=== PATIENT | female | born 1995 | race American Indian/Alaskan Native ===

== ENCOUNTER 2018-08-19 09:15 | Emergency (ER) | payer SELFPAY ==
[2018-08-19 09:41] VITALS: BP 144/99
[2018-08-19] MEDS ORDERED: NORCO 5/325 PO ONE (11:50)
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
--- NOTE | 2018-08-19 12:29 | XRay Report ---
EXAM: XR SPINE LUMBOSACRAL 2-3V HISTORY: Trauma TECHNIQUE: 3 views COMPARISON: None available. FINDINGS: No vertebral fracture, bony erosion, or sclerosis is identified. There is no gross malalignment, spon dylolisthesis, or retrolisthesis seen. There is mild lumbar dextroscoliosis; rule out muscle spasm. The intravertebral disc spaces are prese rved. No evidence for significant degenerative disease is seen. The pedicles are intact throughout. There is no paraspinal soft tissue mass seen. IMPRESSION: 1. Unremarkable lumbar spine x-ray series. 2. Mild lumbar dextroscoliosis; rule out muscle spasm. This document is electronically signed by Eleni Lombardi MD., Aug 19 2018 12:26:45 PM ET
--- NOTE | 2018-08-19 12:31 | Cat Scan Report ---
PROCEDURE: CT HEAD/BRAIN WO CON TECHNIQUE: CT examination of the head without IV contrast HISTORY: Trauma COMPARISONS: None FINDINGS: No acute air-fluid level visualized in the included air-filled sinuses. Bone windows demonstrate no acute fracture. The brain is without mass, mass effect, hemorrhage, or acute infarct. There is no extra-axial intracranial bleed, brain bleed, or midline shift. The ventricles and sulci are age-appropriate. IMPRESSION: No acute CVA, intracranial bleed, or brain mass This document is electronically signed by Daniel Hernandez MD., Aug 19 2018 12:30:15 PM ET
--- NOTE | 2018-08-19 12:38 | Cat Scan Report ---
EXAM: CT CERVICAL SPINE WO CON HISTORY: Trauma TECHNIQUE: Spiral axial CT images with sagittal and coronal reformatted images are obtained through the cervical spine from the skull base to the thoracic inlet without the administration of contrast. COMPARISON: None available. FINDINGS: There is no vertebral fracture seen. The atlantoaxial joint and odontoid process are intact. There is no gross malalignment, spondylolisthesis, retrolisthesis, or perched facet joint seen. There is no gross disc herniation seen. Please note that subtle soft tissue abnormalities can be obs cured in this radiographic setting. Consider follow-up MRI if clinically warranted. IMPRESSION: 1. No gross vertebral fracture, spondylolisthesis, retrolisthesis, or perched facet joint seen. 2. No gross disc herniation seen. This document is electronically signed by Eleni Lombardi MD., Aug 19 2018 12:36:58 PM ET
== END 2018-08-19 13:28 | disposition home or self-care (01) ==
LOC: ED 09:15
DX: R51 Headache (principal); M54.89 Other dorsalgia; M54.2 Cervicalgia; V89.2XXA Person injured in unspecified motor-vehicle accident, traffic, initial encounter; Y93.89 Activity, other specified; Y92.488 Other paved roadways as the place of occurrence of the external cause; Y99.8 Other external cause status
CPT/HCPCS: 70450; 72070; 72100; 72125

== ENCOUNTER 2019-02-11 07:27 | Observation (INO) | payer MEDICAID, OTHER ==
--- NOTE | 2019-02-11 09:08 | Emergency Department Report ---
ED General Adult HPI - General Chief complaint: Weakness Stated complaint: HYPERTHYROIDISM Time Seen by Provider: 02/11/19 09:02 Source: EMS Mode of arrival: Ambulatory Limitations: No Limitations - History of Present Illness Initial comments: 23 year old -[place]ian female presents to the emergency room reporting that she feels her hyperthyroidism is flaring up. Patient admits to throat feeling full. Patient states that she's been off her medications for over a year. Patient reports no past medical history. Patient does report nausea but and only vomited once this morning. Patient admits to lower abdominal pain. Patient denies any dysuria no vaginal discharge or vaginal bleeding. Patient reports her abdominal pain to 7 out of 10. Patient denies any diarrhea. Last menstrual period was 12/28/2018. She is 3 para 3. Surgeries left arm surgery. Last seen a provider over a year. She reports she feels like her borders getting bigger patient reports that she had a fainting spell this morning but did not hit her head or lose consciousness. Patient's vital signs reported during my examination was blood pressure 132/83 heart rate 106 respirations 19 and 100% room air. -: This afternoon Location: abdomen Severity scale (0 -10): 7 Quality: aching Consistency: intermittent Improves with: none Worsens with: none Associated Symptoms: headaches, nausea/vomiting, weakness. denies: chest pain, cough, fever/chills, loss of appetite, shortness of breath, syncope Treatments Prior to Arrival: none - Related Data Previous Rx's Medication Instructions Recorded Last Taken Type Ondansetron [Zofran Odt] 4 mg PO Q8HR #20 tab.rapdis 02/12/19 Unknown Rx methIMAzole [Tapazole] 5 mg PO Q8H #90 tab 02/12/19 Unknown Rx Allergies Allergy/AdvReac Type Severity Reaction Status Date / Time No Known Allergies Allergy Verified 02/11/19 12:17 ED Review of Systems ROS: Stated complaint: HYPERTHYROIDISM Other details as noted in HPI Comment: All other systems reviewed and negative ED Past Medical Hx - Past Medical History Previous Medical History?: Yes Additional medical history: Hyperthyriodism - Surgical History Past Surgical History?: No - Social History Smoking Status: Unknown if ever smoked Substance Use Type: None - Medications Home Medications: Home Medications Medication Instructions Recorded Confirmed Last Taken Type Ondansetron [Zofran Odt] 4 mg PO Q8HR #20 tab.rapdis 02/12/19 Unknown Rx methIMAzole [Tapazole] 5 mg PO Q8H #90 tab 02/12/19 Unknown Rx ED Physical Exam - General Limitations: No Limitations General appearance: alert, in no apparent distress - Head Head exam: Present: atraumatic, normocephalic - Eye Eye exam: Present: normal appearance - ENT ENT exam: Present: mucous membranes moist - Neck Neck exam: Present: full ROM, other (goiter appreciated). Absent: tenderness, lymphadenopathy - Respiratory Respiratory exam: Present: normal lung sounds bilaterally. Absent: respiratory distress - Cardiovascular Cardiovascular Exam: Present: regular rate, normal rhythm. Absent: systolic murmur, diastolic murmur, rubs, gallop - GI/Abdominal GI/Abdominal exam: Present: soft, tenderness (per pubic), normal bowel sounds. Absent: distended - Extremities Exam Extremities exam: Present: normal inspection - Back Exam Back exam: Present: normal inspection - Neurological Exam Neurological exam: Present: alert, oriented X3 - Psychiatric Psychiatric exam: Present: normal affect, normal mood - Skin Skin exam: Present: warm, dry, intact, normal color. Absent: rash ED Course Vital Signs 02/11/19 02/11/19 02/11/19 07:40 07:45 07:56 Temperature 98.2 F Pulse Rate Respiratory Rate Blood Pressure 149/89 O2 Sat by Pulse 99 99 Oximetry 02/11/19 02/11/19 02/11/19 08:00 08:30 08:44 Temperature Pulse Rate 97 H Respiratory 16 18 Rate Blood Pressure 132/83 130/86 O2 Sat by Pulse 99 100 100 Oximetry 02/11/19 02/11/19 02/11/19 09:39 10:00 10:30 Temperature Pulse Rate 124 H 109 H 103 H Respiratory 26 H 28 H 14 Rate Blood Pressure 128/89 129/90 124/81 O2 Sat by Pulse 98 99 100 Oximetry 02/11/19 02/11/19 02/11/19 11:57 12:00 13:01 Temperature Pulse Rate 96 H 118 H 113 H Respiratory 13 19 Rate Blood Pressure 124/81 119/86 131/78 O2 Sat by Pulse 98 100 Oximetry 02/11/19 02/11/19 02/11/19 13:21 13:30 13:41 Temperature Pulse Rate 107 H 109 H 113 H Respiratory 22 21 24 Rate Blood Pressure 131/78 131/79 131/79 O2 Sat by Pulse 100 99 100 Oximetry 02/11/19 02/11/19 02/11/19 13:51 14:00 14:11 Temperature Pulse Rate 111 H 113 H 131 H Respiratory 13 25 H 20 Rate Blood Pressure 130/62 137/75 137/75 O2 Sat by Pulse 100 100 99 Oximetry 02/11/19 02/11/19 02/11/19 14:21 14:31 14:41 Temperature Pulse Rate 114 H 115 H 109 H Respiratory 37 H 51 H 24 Rate Blood Pressure 129/75 134/81 134/81 O2 Sat by Pulse 99 99 100 Oximetry 02/11/19 14:51 Temperature Pulse Rate 113 H Respiratory 24 Rate Blood Pressure 126/72 O2 Sat by Pulse 100 Oximetry ED Medical Decision Making - Lab Data Result diagrams: 02/11/19 09:25 02/12/19 09:27 Laboratory Tests 02/11/19 02/11/19 02/11/19 09:25 09:25 09:25 WBC 4.7 RBC 4.39 Hgb 12.6 Hct 36.0 MCV 82 MCH 29 MCHC 35 H RDW 11.4 L Plt Count 269 Lymph % (Auto) 43.6 H [place] % (Auto) 12.4 H Eos % (Auto) 0.8 Baso % (Auto) 0.4 Lymph # 2.1 [place] # 0.6 Eos # 0.0 Baso # 0.0 Seg Neutrophils % 42.8 Seg Neutrophils # 2.0 Sodium 131 L Potassium 3.3 L Chloride 97.5 L Carbon Dioxide 21 L Anion Gap 16 BUN 8 Creatinine 0.3 L Estimated GFR > 60 BUN/Creatinine Ratio 27 Glucose 93 Calcium 9.1 Total Bilirubin 0.60 AST 14 ALT 15 Alkaline Phosphatase 106 Total Protein 8.5 H Albumin 4.3 Albumin/Globulin Ratio 1.0 TSH Free T4 4.85 H HCG, Qual HCG, Quant 02/11/19 02/11/19 02/11/19 09:25 09:25 09:25 WBC RBC Hgb Hct MCV MCH MCHC RDW Plt Count Lymph % (Auto) [place] % (Auto) Eos % (Auto) Baso % (Auto) Lymph # [place] # Eos # Baso # Seg Neutrophils % Seg Neutrophils # Sodium Potassium Chloride Carbon Dioxide Anion Gap BUN Creatinine Estimated GFR BUN/Creatinine Ratio Glucose Calcium Total Bilirubin AST ALT Alkaline Phosphatase Total Protein Albumin Albumin/Globulin Ratio TSH < 0.005 L Free T4 HCG, Qual Positive HCG, Quant 22522 H Critical care attestation.: If time is entered above; I have spent that time in minutes in the direct care of this critically ill patient, excluding procedure time. ED Disposition Clinical Impression: Hyponatremia, with 7 completed weeks gestation Thyrotoxicosis Qualifiers: Thyrotoxicosis type: unspecified thyrotoxicosis type Thyrotoxic crisis or storm presence: without thyrotoxic crisis or storm Qualified Code(s): E05.90 - Thyrotoxicosis, unspecified without thyrotoxic crisis or storm Vomiting Qualifiers: Vomiting type: unspecified Vomiting Intractability: non-intractable Nausea presence: with nausea Qualified Code(s): R11.2 - Nausea with vomiting, u nspecified Disposition: OP ADMIT IP TO THIS HOSP Is pt being admited?: Yes Does the pt Need Aspirin: Yes Condition: Stable
[2019-02-11 09:39] LABS: Basophils % (Auto) 0.4 % (0.0-1.8); Eosinophils % (Auto) 0.8 % (0.0-4.3); Hemoglobin 12.6 gm/dl (10.1-14.3); Lymphocytes # (Auto) 2.1 K/mm3 (1.2-5.4); Lymphocytes % (Auto) 43.6 % (13.4-35.0); Mean Corpuscular HGB Conc 35 % (30-34); Mean Corpuscular Volume 82 fl (79-97); Monocytes # (Auto) 0.6 K/mm3 (0.0-0.8); Monocytes % (Auto) 12.4 % (0.0-7.3); Platelet Count 269 K/mm3 (140-440); Red Blood Count 4.39 M/mm3 (3.65-5.03); Red Cell Distribution Width 11.4 % (13.2-15.2)
[2019-02-11 10:06] LABS: Alanine Aminotransferase 15 units/L (7-56); Albumin 4.3 g/dL (3.9-5); BUN/Creatinine Ratio 27; Blood Urea Nitrogen 8 mg/dL (7-17); Calcium 9.1 mg/dL (8.4-10.2); Hemolysis Index 3
[2019-02-11 10:59] LABS: Bilirubin,Urine NEG (Negative); Blood,Urine NEG (Negative); Color,Urine Yellow (Yellow); Mucus,Urine 3+ /HPF
--- NOTE | 2019-02-11 11:36 | Ultrasound Report ---
OB Ultrasound HISTORY: abd positive hcg. Generalized abdominal pain TECHNIQUE: Grayscale and color Doppler imaging performed. COMPARISON: None FINDINGS: Transabdominal and endovaginal imaging was performed. Uterus is normal in size. Both ovaries are normal in size with preserved blood flow. There is a compl ex cyst in the left ovary measuring 1.5 cm in maximal dimension, likely a functional cyst. No signifi cant pelvic free fluid identified. There is an intrauterine gestation with crown-rump length measuring 1 cm. This would correspond with an EGA of 7 weeks and 1 day. heart rate is 143 bpm. A tiny yolk sac is present. The cervix measures 2.2 cm in length and appears to be closed. IMPRESSION: Single viable intrauterine gestation as above with nothing acute identified. Signer Name: Avinash Pa MD Signed: 02/11/2019 11:32 AM Workstation Name: [id number]
[2019-02-11] MEDS ORDERED: SODIUM CHLORIDE 0.9% 1000 ML 1,000 ML IV ONE (12:15)
[2019-02-11] MEDS ORDERED: POTASSIUM CHLORIDE ER 20 MEQ TAB PO ONE (12:16)
--- NOTE | 2019-02-11 12:48 | History and Physical Report ---
History of Present Illness Date of admission: 02/11/19 12:17 Chief complaint: i feel strange History of present illness: 23 YO Female with Hyperthyroidism not currently taking mediation. Pt presents to ED for evaluation. Pt states that she has experienced full feeling in her throat over the past several weeks, chest palpitations, heat intolerance, and generalized weakness. EMS notified and upon arrival the patient found to be in distress and transported to [facility]. Pt seen and evaluated in ED and found to have Hyperthyroidism. Pt treated with IVF resuscitation therapy, MEDICAL DOSIMETRIST service consulted in ED. Pt placed in observation status and admitted to medical floor. Pt denies fever, chills, CP, trauma, BRBPR, productive cough, skin rash, or known ill contacts. No prior admission for review. No medication listed for reconciliation at time of admission. Past History Past Medical History: other (seee hpi) Past Surgical History: No surgical history, Other (reviewed) Social history: single. denies: smoking, alcohol abuse, prescription drug abuse Family history: no significant family history (reviewed) Medications and Allergies Allergies Allergy/AdvReac Type Severity Reaction Status Date / Time No Known Allergies Allergy Verified 02/11/19 12:17 Home Medications Medication Instructions Recorded Confirmed Last Taken Type Cyclobenzaprine HCl [Flexeril 5 MG 5 mg PO TID PRN #10 tab 08/19/18 Unknown Rx TAB] Ibuprofen [Ibuprofen 400] 400 mg PO Q8H PRN #20 tablet 08/19/18 Unknown Rx Active Meds: Active Medications Sodium Chloride (Nacl 0.9% 1000 Ml) 1,000 mls @ 999 mls/hr IV BOLUS ONE Stop: 02/11/19 13:15 Last Admin: 02/11/19 12:29 Dose: 999 mls/hr Documented by: Review of Systems Constitutional: no weight loss, no weight gain, no fever, no chills Ears, nose, mouth and throat: no ear pain, no ear discharge, no tinnitis, no decreased hearing, no nose pain, no nasal discharge Breasts: no change in shape, no swelling, no mass Cardiovascular: no chest pain, no orthopnea, no rapid/irregular heart beat, no edema, no syncope Respiratory: no cough, no cough with sputum, no excessive sputum, no shortness of breath Gastrointestinal: nausea, vomiting, no abdominal pain, no diarrhea, no constipation, no change in bowel habits Genitourinary Female: no flank pain, no menorrhagia, no dysuria Rectal: no pain, no incontinence, no bleeding Musculoskeletal: no neck stiffness, no low back pain Integumentary: no pruritis, no redness, no sores, no wounds, no jaundice, no blisters Neurological: no transient paralysis, no paralysis, no weakness, no parathesias, no numbness, no seizures, no syncope Psychiatric: no anxiety, no memory loss, no change in sleep habits, no sleep disturbances, no suicidal ideation Endocrine: heat intolerance, no polyphagia, no excessive thirst, no polydipsia, no polyuria, no nocturia Hematologic/Lymphatic: no easy bruising, no easy bleeding, no lymphadenopathy, no lymphedema Allergic/Immunologic: no urticaria, no allergic rhinitis, no anaphylaxis Exam - Constitutional Vitals: Temp Pulse Resp BP Pulse Ox 98.2 F 103 H 14 124/81 100 02/11/19 07:56 02/11/19 10:30 02/11/19 10:30 02/11/19 10:30 02/11/19 10:30 General appearance: Present: mild distress - EENT Eyes: Present: PERRL ENT: hearing intact, clear oral mucosa - Neck Neck: Present: supple, normal ROM - Respiratory Respiratory effort: normal Respiratory: bilateral: CTA - Cardiovascular Heart Sounds: Present: S1 & S2. Absent: rub, click - Extremities Extremities: pulses symmetrical, No edema Peripheral Pulses: within normal limits - Abdominal General gastrointestinal: Present: soft, non-tender, non-distended, normal bowel sounds, other (gravid uterus) Female genitourinary: Present: normal - Integumentary Integumentary: Present: clear, warm, dry - Musculoskeletal Musculoskeletal: gait normal, strength equal bilaterally - Psychiatric Psychiatric: appropriate mood/affect, intact judgment & insight - Neurologic Neurologic: CNII-XII intact, moves all extremities Results - Labs CBC & Chem 7: 02/11/19 09:25 02/11/19 09:25 Labs: Abnormal lab results 02/11/19 02/11/19 02/11/19 Range/Units 09:25 09:25 09:25 MCHC 35 H (30-34) % RDW 11.4 L (13.2-15.2) % Lymph % (Auto) 43.6 H (13.4-35.0) % Cuming % (Auto) 12.4 H (0.0-7.3) % Sodium 131 L (137-145) mmol/L Potassium 3.3 L (3.6-5.0) mmol/L Chloride 97.5 L (98-107) mmol/L Carbon Dioxide 21 L (22-30) mmol/L Creatinine 0.3 L (0.7-1.2) mg/dL Total Protein 8.5 H (6.3-8.2) g/dL TSH (0.270-4.200) mlU/mL Free T4 4.85 H (0.76-1.46) ng/dL HCG, Quant (0-4) mIU/mL 02/11/19 02/11/19 Range/Units 09:25 09:25 MCHC (30-34) % RDW (13.2-15.2) % Lymph % (Auto) (13.4-35.0) % Cuming % (Auto) (0.0-7.3) % Sodium (137-145) mmol/L Potassium (3.6-5.0) mmol/L Chloride (98-107) mmol/L Carbon Dioxide (22-30) mmol/L Creatinine (0.7-1.2) mg/dL Total Protein (6.3-8.2) g/dL TSH < 0.005 L (0.270-4.200) mlU/mL Free T4 (0.76-1.46) ng/dL HCG, Quant 38480 H (0-4) mIU/mL Assessment and Plan - Patient Problems (1) Thyrotoxicosis Current Visit: Yes Status: Acute Qualifiers: Thyrotoxicosis type: unspecified thyrotoxicosis type Thyrotoxic crisis or storm presence: without thyrotoxic crisis or storm Qualified Code(s): E05.90 - Thyrotoxicosis, unspecified without thyrotoxic crisis or storm Plan to address problem: supportive care, IVF resuscitation therapy, medication reviewed, no medication at this time. continue supportive care, Risk/Benefit of Methimazole/Propanolol as per MEDICAL DOSIMETRIST and desire for continue given risks and benefits. (2) Hyponatremia Current Visit: Yes Status: Acute Plan to address problem: IVF resuscitation therapy, supportive care. (3) Vomiting Current Visit: Yes Status: Acute Qualifiers: Vomiting type: unspecified Vomiting Intractability: non-intractable Nausea presence: with nausea Qualified Code(s): R11.2 - Nausea with vomiting, unspecified Plan to address problem: anti emetic therapy, supportive care (4) DVT prophylaxis Current Visit: Yes Status: Acute Plan to address problem: SCD to BLE while in bed.
[2019-02-11] MEDS ORDERED: ACETAMINOPHEN 325 MG TAB PO PRN (12:49)
[2019-02-11] MEDS ORDERED: ONDANSETRON 4 MG/2 ML INJ IV PRN (12:49)
[2019-02-11] MEDS ORDERED: ALBUTEROL 2.5 MG/3 ML NEBU IH PRN (12:49)
[2019-02-11] MEDS ORDERED: SODIUM CHLORIDE 0.9% 1000 ML 1,000 ML IV SCH (13:00)
[2019-02-11] MEDS ORDERED: POTASSIUM CHLORIDE 10 MEQ 10 MEQ/100 ML BAG IV SCH (13:00)
--- NOTE | 2019-02-11 21:38 | Consultation ---
History of Present Illness Consult date: 02/11/19 Requesting physician: TARAN MONROY Reason for consult: early problem History of present illness: Pt is a 23yo BF LMP 12/28/18 EGA 7 04/17 weeks presents with Hyperthyroidism not currently taking mediation. She presents to ED for evaluation. She states that she has experienced full feeling in her throat over the past several weeks, chest palpitations, heat intolerance, and generalized weakness. EMS notified and upon arrival the patient found to be in distress and transported to [facility]. She was seen and evaluated in ED and found to have Hyperthyroidism. She treated with IVF resuscitation therapy, and I was consulted since she is currently and has not seen an [employer] for this . She denies abdominal pains or vaginal, bleeding, fever, chills, CP, trauma, BRBPR, productive cough, skin rash, or known ill contacts. Past History Past Medical History: thyroid disease Past Surgical History: other (left arm) Social history: no significant social history, single Medications and Allergies Allergies Allergy/AdvReac Type Severity Reaction Status Date / Time No Known Allergies Allergy Verified 02/11/19 12:17 Home Medications Medication Instructions Recorded Confirmed Last Taken Type Cyclobenzaprine HCl [Flexeril 5 MG 5 mg PO TID PRN #10 tab 08/19/18 Unknown Rx TAB] Ibuprofen [Ibuprofen 400] 400 mg PO Q8H PRN #20 tablet 08/19/18 Unknown Rx Active Meds: Active Medications Acetaminophen (Tylenol) 650 mg PO Q4H PRN PRN Reason: Pain MILD(1-3)/Fever >100.5/RANDOLPH Albuterol (Proventil) 2.5 mg IH Q4HRT PRN PRN Reason: Shortness Of Breath Sodium Chloride (Nacl 0.9% 1000 Ml) 1,000 mls @ 42 mls/hr IV DIRECT FRANCI Ondansetron HCl (Zofran) 4 mg IV Q8H PRN PRN Reason: Nausea And Vomiting Sodium Chloride (Sodium Chloride Flush Syringe 10 Ml) 10 ml IV BID FRANCI Last Admin: 02/11/19 21:15 Dose: 10 ml Documented by: Sodium Chloride (Sodium Chloride Flush Syringe 10 Ml) 10 ml IV PRN PRN PRN Reason: LINE FLUSH Review of Systems All systems: negative - Vital Signs Vital signs: Vital Signs BP Pulse Ox 149/89 99 02/11/19 07:40 02/11/19 07:40 Temp Pulse Resp BP Pulse Ox 98.3 F 103 H 16 138/85 100 02/11/19 16:00 02/11/19 16:00 02/11/19 16:00 02/11/19 16:00 02/11/19 20:37 - Physical Exam Breasts: Positive: deferred Cardiovascular: Regular rate Lungs: Positive: Clear to auscultation Abdomen: Positive: normal appearance Genitourinary (Female): Positive: normal external genitalia Extremities: Positive: normal Results Result Diagrams: 02/11/19 09:25 02/11/19 09:25 Abnormal lab results 02/11/19 02/11/19 02/11/19 Range/Units 09:25 09:25 09:25 MCHC 35 H (30-34) % RDW 11.4 L (13.2-15.2) % Lymph % (Auto) 43.6 H (13.4-35.0) % Mcclain % (Auto) 12.4 H (0.0-7.3) % Sodium 131 L (137-145) mmol/L Potassium 3.3 L (3.6-5.0) mmol/L Chloride 97.5 L (98-107) mmol/L Carbon Dioxide 21 L (22-30) mmol/L Creatinine 0.3 L (0.7-1.2) mg/dL Total Protein 8.5 H (6.3-8.2) g/dL TSH (0.270-4.200) mlU/mL Free T4 4.85 H (0.76-1.46) ng/dL HCG, Quant (0-4) mIU/mL 02/11/19 02/11/19 Range/Units 09:25 09:25 MCHC (30-34) % RDW (13.2-15.2) % Lymph % (Auto) (13.4-35.0) % [place]clain % (Auto) (0.0-7.3) % Sodium (137-145) mmol/L Potassium (3.6-5.0) mmol/L Chloride (98-107) mmol/L Carbon Dioxide (22-30) mmol/L Creatinine (0.7-1.2) mg/dL Total Protein (6.3-8.2) g/dL TSH < 0.005 L (0.270-4.200) mlU/mL Free T4 (0.76-1.46) ng/dL HCG, Quant 04610 H (0-4) mIU/mL All other labs normal. Ultrasound: report reviewed (IUP @ 7.1 weeks) Assessment and Plan - Patient Problems (1) with 7 completed weeks gestation Onset Date: 02/11/19 Current Visit: Yes Status: Acute Plan to address problem: A: IUP @ 7.1 weeks Thyrotoxicosis - not on medication P: Agree with admission for further evaluation and treatment Would obtain consultation with Platform Material Handler [facility] or [facility] for management of thyrotoxicosis Will follow with you, and she can follow up in the office upon discharge to begin care (2) Thyrotoxicosis Onset Date: 02/11/19 Current Visit: Yes Status: Acute Qualifiers: Thyrotoxicosis type: unspecified thyrotoxicosis type Thyrotoxic crisis or storm presence: without thyrotoxic crisis or storm Qualified Code(s): E05.90 - Thyrotoxicosis, unspecified without thyrotoxic crisis or storm
[2019-02-11 21:41] LABS: Amphetamine Screen,Urine PRESUMPTIVE NEGATIVE; Benzodiazepines Screen,Urine PRESUMPTIVE NEGATIVE; Cocaine Screen,Urine PRESUMPTIVE NEGATIVE; Methadone Screen,Urine PRESUMPTIVE NEGATIVE; Opiate Screen,Urine PRESUMPTIVE NEGATIVE
[2019-02-11 21:53] LABS: Cannabinoid Screen,Urine PRESUMPTIVE POSITIVE
[2019-02-11] MEDS ORDERED: MELATONIN 5 MG TAB PO ONE ×2 (22:15→23:05)
[2019-02-12 10:13] LABS: Alanine Aminotransferase 14 units/L (7-56); Albumin 3.9 g/dL (3.9-5); BUN/Creatinine Ratio 17; Blood Urea Nitrogen 5 mg/dL (7-17); Calcium 9.4 mg/dL (8.4-10.2); Hemolysis Index 1
[2019-02-12] MEDS ORDERED: FLU VACC QUAD 2019-20 (3 YR UP)/PF 60 MCG/0.5 ML SYRINGE IM ONE (12:00)
[2019-02-12 14:25] VITALS: BP 160/82
--- NOTE | 2019-02-12 17:39 | Discharge Summary ---
Providers - Providers Date of Admission: 02/11/19 12:17 Date of discharge: 02/12/19 Attending physician: MARIBEL WOLF 02/11/19 12:19 Consult to Physician [CONS] Urgent Comment: ROBERT LEBRON W/DR DANIEL QUINTERO @[id number] Consulting Provider: DANIEL QUINTERO Physician Instructions: Reason For Exam: thyrotoxicosis in 02/11/19 22:09 Consult to Physician [CONS] Urgent Comment: Consulting Provider: NAPOLEON JONES Physician Instructions: Reason For Exam: Thyrotoxicosis Primary care physician: [employer]EARCH[employer] Hospitalization Condition: Stable Hospital course: 23 YO Female with Hyperthyroidism not currently taking mediation. Pt presents to ED for evaluation. Pt states that she has experienced full feeling in her throat over the past several weeks, chest palpitations, heat intolerance, and generalized weakness. EMS notified and upon arrival the patient found to be in distress and transported to [facility]. Pt seen and evaluated in ED and found to have Hyperthyroidism. Pt treated with IVF resuscitation therapy, FIELD SERVICE COORDINATOR service consulted in ED. Pt placed in observation status and admitted to medical floor. Pt denies fever, chills, CP, trauma, BRBPR, productive cough, skin rash, or known ill contacts. No prior admission for review. No medication listed for reconciliation at time of admission. Patient evaluated by FIELD SERVICE COORDINATOR-Dr. Daniel Quintero Patient to follow with them for outpatient treatment and care. Patient has thyrotoxicosis to be discharged on methimazole because patient has side effects with propylthiouracil. (1) Thyrotoxicosis Current Visit: Yes Status: Acute Qualifiers: Thyrotoxicosis type: unspecified thyrotoxicosis type Thyrotoxic crisis or storm presence: without thyrotoxic crisis or storm Qualified Code(s): E05.90 - Thyrotoxicosis, unspecified without thyrotoxic crisis or storm Plan to address problem: Patient has side effects with propylthiouracil. Patient to be discharged on methimazole 5 mg 3 times a day. Vision to follow with her PCP and FIELD SERVICE COORDINATOR and endocrinologists (2) Hyponatremia Current Visit: Yes Status: Acute Plan to address problem: Hyponatremia corrected (3) Hypokalemia corrected (4) Vomiting Current Visit: Yes Status: Acute Qualifiers: Vomiting type: unspecified Vomiting Intractability: non-intractable Nausea presence: with nausea Qualified Code(s): R11.2 - Nausea with vomiting, unspecified Plan to address problem: anti emetic therapy, supportive care Improved Disposition: DC-01 TO HOME OR SELFCARE Core Measure Documentation - Palliative Care Palliative Care/ Comfort Measures: Not Applicable - Core Measures Any of the following diagnoses?: none Exam - Constitutional Vitals: Temp Pulse Resp BP Pulse Ox 97.9 F 109 H 20 160/82 100 02/12/19 13:00 02/12/19 13:00 02/12/19 13:00 02/12/19 13:00 02/12/19 04:53 General appearance: Present: no acute distress, well-nourished - EENT Eyes: Present: PERRL ENT: hearing intact, clear oral mucosa - Neck Neck: Present: supple, normal ROM - Respiratory Respiratory effort: normal Respiratory: bilateral: CTA - Cardiovascular Heart rate: 98 Rhythm: regular Heart Sounds: Present: S1 & S2. Absent: rub, click - Extremities Extremities: pulses symmetrical, No edema Peripheral Pulses: within normal limits - Abdominal General gastrointestinal: Present: soft, non-tender, non-distended, normal bowel sounds Female genitourinary: Present: normal - Integumentary Integumentary: Present: clear, warm, dry - Musculoskeletal Musculoskeletal: gait normal, strength equal bilaterally - Psychiatric Psychiatric: appropriate mood/affect, intact judgment & insight - Neurologic Neurologic: CNII-XII intact, moves all extremities Plan Activity: no restrictions Diet: regular Follow up with: PRIMARY MD CHICHO [Primary Care Provider] - 3-5 Days DANIEL QUINTERO MD [Staff Physician] - 7 Days
== END 2019-02-12 18:25 | disposition home or self-care (01) ==
LOC: ED 07:27 → 3A 12:17
PROVIDERS: ADMIT Internal Medicine; ATTEND Internal Medicine
DX: O99.281 Endocrine, nutritional and metabolic diseases complicating pregnancy, first trimester (principal); E05.90 Thyrotoxicosis, unspecified without thyrotoxic crisis or storm; E87.1 Hypo-osmolality and hyponatremia; R11.10 Vomiting, unspecified; Z3A.01 Less than 8 weeks gestation of pregnancy
CPT/HCPCS: 36415; 76801; 76817; 80053; 80307; 81001; 84439; 84443; 84702; 84703; 85025; 87116; 93005; 93010; 96360; 96361; 99284; G0378; J7030; 90686